=== PATIENT | female | born 1945 | race Caucasian/White ===

== ENCOUNTER 2023-08-15 11:16 | Inpatient (IN) | payer MEDICARE, OTHER, SELFPAY ==
[2023-08-15 11:19] VITALS: BP 120/79; PULSE 87; RESP 18; TEMP 35.8; O2SAT 99; BMI 25.2
[2023-08-15 11:47] LABS: Absolute Neutrophil Count 4.2 X10^3/uL (2.0-7.7); Basophil# 0.03 X10^3/uL; Basophil% 0.4 % (0-1); Eosinophil# 0.49 X10^3/uL; Eosinophils% 6.5 % (0-5); Hematocrit 36.6 % (37-47); Mean Corp Hgb Conc 32.8 g/dL (32-36); Mean Corpuscular Hgb 28.6 pg (27.0-32.0); Mean Corpuscular Volume 87.1 fL (81-99); Mean Platelet Vol. 9.3 fl (6.2-12.0); Monocyte# 0.59 X10^3/uL; Monocyte% 7.8 % (0-10); NRBC Flagged by Analyzer 0 % (0-5); Neutrophil # 4.24 X10^3/uL (2.7-7.7); Neutrophil % 55.9 % (47-70); Platelet Count 324 K/mm3 (150-450); RBC Distribution Width CV 14.1 % (11.6-14.6); RBC Distribution Width SD 44.8 fl (35.1-43.9); White Blood Count 7.6 K/mm3 (4.4-11.0)
[2023-08-15 13:04] LABS: Amphetamine Urine VISTA NEGATIVE (<1000 ng/mL); Barbiturate Urine VISTA NEGATIVE (< 200 ng/mL); Benzodiazepine Urine VISTA POSITIVE (< 200 ng/mL); Cocaine Urine VISTA NEGATIVE (< 300 ng/mL); Ecstacy Urine VISTA NEGATIVE (< 500 ng/mL); Methadone Urine VISTA NEGATIVE (< 300 ng/mL); PCP Urine VISTA NEGATIVE (< 25 ng/mL); THC Urine VISTA NEGATIVE (< 50 ng/mL); Vista UDS pH Range 4
[2023-08-15 13:20] LABS: Anion Gap 9 (5-15); BUN 21 mg/dL (7-18); BUN/Creat Ratio 13.9 RATIO (10-20); Calcium,Total 9.4 mg/dL (8.5-10.1); Chloride 112 mmol/L (98-107); Creatinine, Serum 1.51 mg/dL (0.55-1.02); EST Glomerular Filtration Rate 35 mL/min (>60); Est Glom Filt Rate - Afr Amer 43 mL/min (>60); Estimated Creatinine Clearance 28.35 ml/min; Glucose 106 mg/dL (74-106); Potassium 3.8 mmol/L (3.5-5.1); Sodium Level 142 mmol/L (136-145)
--- NOTE | 2023-08-15 13:42 | EDS_ITS ---
HPI HPI - Psych History of Present Illness Chief Complaint: Substance Abuse Narrative Narrative: 78-year-old female with history of anxiety and depression presenting with anxiety. She states she has been trying to wean down on Valium which has been taking for the last 11 years. She gets 2.5 mg p.o. daily in the morning. She states he is also on olanzapine5 mg p.o. daily and fluoxetine 40 mg p.o. daily in addition to Paxil 20 mg daily. Patient states he is still getting breakthrough anxiety. Patient states that recently had some stressors in the family and her grandson was put in fdc and he is not allowed to see her great- grandson anymore because she is on the wrong side of the family. She states this makes her anxious. Patient reports that her psychiatrist told her she could just discontinue it completely. Patient states that she did not feel she could do this because other people told her it was unsafe. She states she has been to a couple of different physicians and she gets a different story from each. She is not sure what to do. She has not called her psychiatrist back. Patient reports that she tried to wean herself down on the Valium and went from 2.5 to taking half a pill. Over the last month she has been taking a quarter of a pill daily. She states that she is scared to stop because she gets too anxious. [facility] Home Medications ?Medication ?Instructions ?Recorded ?Last Taken ?Type amoxicillin 500 mg capsule 500 mg PO TID 08/15/23 Unknown History mirtazapine 30 mg tablet 30 mg PO QHS 08/15/23 Unknown History olanzapine 5 mg tablet 5 mg PO QHS 08/15/23 Unknown History paroxetine HCl 20 mg tablet (Paxil) 20 mg PO QHS 08/15/23 Unknown History Allergy/AdvReac Type Severity Reaction Status Date / Time No Known Allergies Allergy Verified 08/15/23 11:18 Social History Smoking Status: Former smoker ROS ROS ED Constitutional Constitutional ED: Denies chills, fever(s) or sweats Eyes Eyes: Denies blurry vision or change in vision ENT ENT ED: Denies ear pain or sore throat Cardiovascular Cardiovascular: Denies chest pain, palpitations or racing heartbeat Respiratory/Chest Respiratory/Chest: Denies cough, dyspnea or sputum Gastrointestinal Gastrointestinal: Denies abdominal pain, constipation, diarrhea, nausea or vomiting Genitourinary Genitourinary ED: Denies dysuria, hematuria or urinary frequency Musculoskeletal Musculoskeletal: Denies arthralgias, myalgias or neck pain Integumentary Denies abscess, Abrasions or rash Neurologic Neurologic: Denies headache(s), paresthesias or weakness Psychiatric Psychiatric: Reports anxiety and depression; Denies suicidal ideation or moe icidal thoughts Endocrine Endocrinology: Denies polydipsia or polyuria EXAM Physical Exam Const Vital Signs: 08/15/23 11:19 Temperature 96.5 F L Temperature Source Temporal Pulse Rate 87 Respiratory Rate 18 Blood Pressure 120/79 Blood Pressure Mean 92 Pulse Ox 99 Oxygen Delivery Method Room Air Positive well nourished General Appearance ED: NAD; Negative for pallor HEENT normocephalic and atraumatic Eyes PERRL and EOMs intact bilaterally Resp normal respiratory effort Auscultation: Negative for rales, rhonchi or wheezes Neuro oriented x3 and CN's II-XII intact bilaterally Sensorium / Orientation: alert Psych mental status grossly normal and thought process normal Appearance: grossly normal and appropriate Attitude: other Anxious Activity / Motor Behavior: appropriate eye contact; Negative for psychomotor slowing, fidgetting, hyperactive or disorganized Speech: normal speech Mood & Affect: anxious Thought Process: normal thought process Thought Content: normal thought content, No suicidality and No homicidality Attention / Concentration: attention grossly intact Memory / Cognition: memory grossly intact Insight: insight good Judgement: judgement good Skin General Skin Exam: Negative for jaundice or pallor MDM MDM MDM Narrative Medical decision making narrative: Patient presenting requesting detox from Valium. She has been taking a quarter of a 2.5 mg tablet for about a month now. Screening lab work was obtained and her CBC shows normal white blood cell count at 7.6. Hemoglobin 12.0. Platelets are normal at 324. Electrolytes are normal. Drug screen positive for benzodiazepines which she takes. EtOH negative. Creatinine is 1.5 which is near baseline for her. Will discuss with the hospitalist for possible admission for detox. Discussed with hospitalist who is amenable to keeping the patient for detox. Patient admitted stable condition. Impression: 1. Benzodiazepine detox Lab Data Attestation: I reviewed the patient's lab results. Labs: Laboratory Results - last 24 hr 08/15/23 08/15/23 11:33 12:15 WBC 7.6 RBC 4.20 Hgb 12.0 Hct 36.6 L MCV 87.1 MCH 28.6 MCHC 32.8 RDW Std Deviation 44.8 H RDW Coeff of Jaqueline 14.1 Plt Count 324 MPV 9.3 Immature Gran % (Auto) 0.400 Neut % (Auto) 55.9 Lymph % (Auto) 29.0 [place] % (Auto) 7.8 Eos % (Auto) 6.5 H Baso % (Auto) 0.4 Absolute Neuts (auto) 4.2 Absolute Lymphs (auto) 2.20 Nucleated RBC % 0 Sodium 142 Potassium 3.8 Chloride 112 H Carbon Dioxide 21.0 Anion Gap 9 BUN 21 H Creatinine 1.51 H Estim Creat Clear Calc 28.35 Est GFR (MDRD) Af Amer 43 L Est GFR (MDRD) Non-Af 35 L BUN/Creatinine Ratio 13.9 Glucose 106 Calcium 9.4 Urine Opiates Screen NEGATIVE Urine Methadone Screen NEGATIVE Ur Barbiturates Screen NEGATIVE Ur Phencyclidine Scrn NEGATIVE Ur Amphetamines Screen NEGATIVE MDMA (Ecstasy) Screen NEGATIVE U Benzodiazepines Scrn POSITIVE H Urine Cocaine Screen NEGATIVE U Cannabinoids Screen NEGATIVE Ur Drug Screen Comment Ethyl Alcohol 7.0 Discharge Plan Triage Chief Complaint: Substance Abuse Other Complaint: Anxiety ED Provider: Franko Brock Dx/Rx/DC Orders Prescriptions: No Action paroxetine HCl [Paxil] 20 mg tablet 20 mg PO QHS olanzapine 5 mg tablet 5 mg PO QHS mirtazapine 30 mg tablet 30 mg PO QHS amoxicillin 500 mg capsule 500 mg PO TID Primary Care Provider: Terry Solano Referrals: Terry Solano MD [Primary Care Provider] - Print Language: Finnish
[2023-08-15 14:00] VITALS: BP 157/77; PULSE 69; RESP 16; TEMP 36.7; O2SAT 99
--- NOTE | 2023-08-15 14:17 | HP.PCM.HOS_ITS ---
HPI - General General Date of Admission: 08/15/23 Date of Service: 08/15/23 Chief Complaint: Severe anxiety. Wants to get off Valium HPI Narrative PRINCE BOSS, is a 78 F with history of chronic anxiety and depression on multiple antipsychotic medications, mirtazapine and olanzapine, SSRI paroxetine and Valium 2.5 mg daily came to ED to get off Valium. She follows psychiatrist in [facility] and was told to stop abruptly she said she cannot do it because she has been for a long time. Therefore patient is getting admitted. Patient has history of severe anxiety with panic attack. She also complains of loss of weight about 20 pounds in 2 months. Including seeing, CT chest, abdomen and pelvis was checked done as an outpatient did not show any lymphadenopathy. Patient states she does not have appetite and did not eat much. She has very low self-esteem and indices and does not know what to do and even had difficulty in deciding whether she gets admitted or not but lastly decided to get admitted Patient accompanied with her and last visit to get admitted. Vitals reviewed. Patient said her blood pressure is very low in ED and sometimes does not take carvedilol. But carvedilol is not listed in her home meds. Family history noncontributory to the present illness. [facility] Home Medications ?Medication ?Instructions ?Recorded ?Last Taken ?Type amoxicillin 500 mg capsule 500 mg PO TID 08/15/23 Unknown History calcium carbonate 600 mg-vitamin 1 tab PO DAILY 08/15/23 Unknown History D3 5 mcg (200 unit) tablet (Calcium 600 + D(3)) carvedilol 12.5 mg tablet 12.5 mg PO BID 08/15/23 Unknown History cyanocobalamin (vitamin B-12) 1,000 mcg IM Q21D 08/15/23 Unknown History 1,000 mcg/mL injection solution diazepam 5 mg tablet 5 mg PO TID PRN PRN anxiety 08/15/23 Unknown History ferrous sulfate 325 mg (65 mg 325 mg PO Q3D 08/15/23 08/14/23 History iron) tablet (FeroSul) magnesium 250 mg tablet 250 mg PO DAILY 08/15/23 Unknown History mirtazapine 30 mg tablet 30 mg PO QHS 08/15/23 Unknown History multivitamin (Daily Multi-Vitamin 1 tab PO DAILY 07/10/24 Unknown History tablet) olanzapine 5 mg tablet 5 mg PO QHS 08/15/23 Unknown History paroxetine HCl 20 mg tablet (Paxil) 20 mg PO QHS 08/15/23 Unknown History potassium citrate 99 mg capsule 99 mg PO DAILY 08/15/23 Unknown History Allergy/AdvReac Type Severity Reaction Status Date / Time No Known Allergies Allergy Verified 08/15/23 11:18 Social History Smoking Status: Former smoker ROS ROS Narrative Constitutional: Reports fatigue and weakness. No fever. Complain of loss of weight HEENT: Reports systems reviewed and no addt'l complaints, except as documented Respiratory/Chest: No acute shortness of breath or respiratory distress or wheezing. CVS: No chest pain or tightness. Gastrointestinal: Denies coffee ground emesis, hematemesis or vomiting Genitourinary: Denies burning urination or new urinary tract symptoms Musculoskeletal: Denies acute joint pain or limited range of motion. No acute injury Neurologic: Denies seizure-like symptoms. Psychiatry: Severe anxiety and depression. Low self-esteem skin: No ulcer. No rash Endocrinology: Reports systems reviewed and no addt'l complaints, except as documented Hematologic/Lymphatic: Reports systems reviewed and no addt'l complaints, except as documented Rest 14 ROS are negative except as mentioned in HPI Vital Signs Vital Signs Vital Signs: 08/15/23 11:19 Temperature 96.5 F L Temperature Source Temporal Pulse Rate 87 Respiratory Rate 18 Blood Pressure 120/79 Blood Pressure Mean 92 Pulse Ox 99 Oxygen Delivery Method Room Air Weight Weight: 146 lb 11.2 oz Body Mass Index (BMI) 25.2 Physical Exam Narrative General: Alert, Oriented x3, Cooperative HEENT: Atraumatic, PERRLA, EOMI, Normocephalic Oral: No Gingival or Mucosal Lesions/ Ulcerations Neck: Supple, No JVD, Negative Carotid Bruits Chest wall/Lungs: Air entry diminished in bilateral lung bases. No crepitation/rhonchi Cardiovascular: Regular rate, Regular Rhythm, Normal S1, Normal S2, No M/G/R Abdomen: Bowel Sounds Present, Soft, Non Tender, Non-Distended : No dysuria. No renal angle tenderness. No suprapubic tenderness. Extremities: No edema, Capillary Refill Less than 3 Seconds Skin: No rashes, No breakdown Musculoskeletal: No Tenderness to Palpation of Joints or Extremities Neurological: Cranial nerves II-XII grossly intact, DTR 2+/4. No acute focal neurological deficit. Psych/Mental Status: Flat affect, anxious, indecisive. Has tremors and shakings of anxiety Results Lab / Micro Data 08/15/23 11:33 08/15/23 11:33 Labs: Laboratory Results - last 24 hr 08/15/23 11:33: WBC 7.6, RBC 4.20, Hgb 12.0, Hct 36.6 L, MCV 87.1, MCH 28.6, MCHC 32.8, RDW Std Deviation 44.8 H, RDW Coeff of Jaqueline 14.1, Plt Count 324, MPV 9.3, Immature Gran % (Auto) 0.400, Neut % (Auto) 55.9, Lymph % (Auto) 29.0, [place] % (Auto) 7.8, Eos % (Auto) 6.5 H, Baso % (Auto) 0.4, Absolute Neuts (auto) 4.2, Absolute Lymphs (auto) 2.20, Nucleated RBC % 0, Sodium 142, Potassium 3.8, C hloride 112 H, Carbon Dioxide 21.0, Anion Gap 9, BUN 21 H, Creatinine 1.51 H, Estim Creat Clear Calc 28.35, Est GFR (MDRD) Af Amer 43 L, Est GFR (MDRD) Non-Af 35 L, BUN/Creatinine Ratio 13.9, Glucose 106, Calcium 9.4, Ethyl Alcohol 7.0 08/15/23 12:15: Urine Opiates Screen NEGATIVE, Urine Methadone Screen NEGATIVE, Ur Barbiturates Screen NEGATIVE, Ur Phencyclidine Scrn NEGATIVE, Ur Amphetamines Screen NEGATIVE, MDMA (Ecstasy) Screen NEGATIVE, U Benzodiazepines Scrn POSITIVE H, Urine Cocaine Screen NEGATIVE, U Cannabinoids Screen NEGATIVE, Ur Drug Screen Comment Assessment & Plan Assessment/Plan (1) Benzodiazepine dependence, continuous: PLAN: Plan This is a 69 Ne[employer] being admitted for 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 Acute benzodiazepine withdrawal syndrome with chronic benzodiazepine use and dependence and tolerance: Patient is being admitted to [facility] floor. Patient on Ativan based order set along with other adjunctive medications gabapentin, Bentyl, Vistaril, clonidine, Klonopin as needed for benzodiazepine withdrawal symptom control. Patient is on thiamine and folate acid. Discontinue diazepam/Valium monitor for benzodiazepine withdrawal symptoms and is scoring. online merchandising manager 180 consulted. U tox positive for benzodiazepine. 2. Severe anxiety and depression: Patient on olanzapine 5 mg nightly, mirtazapine 30 mg and paroxetine 20 mg nightly besides Valium 2.5 mg daily. Mirtazapine decreased to 50 mg otherwise other medications continued. Patient follows psychiatrist advised to continue. 3. Loss of weight: Patient had outpatient CT chest abdomen, reviewed in clinic seen does not show lymphadenopathy. Advised to continue follow with PCP or oncology office. Patient had CT abdomen pelvis without IV contrast on August 06, 2023 and reported no lymphadenopathy in the abdomen or pelvis by size criteria. Patient had CT chest without contrast on August 06, 2023 and reported no thoracic lymphadenopathy. Advised to follow with PCP. 4. Chronic hypertension: Patient not taking any medication. Blood pressure is normal 5. Possible worsening of CKD stage III: Creatinine is 1.51. Estimated creatinine clearance 28 mL/min. Previous creatinine was 1.29 on July 31, 2023. BUN 29. BUNs/creatinine ratio 22 and does not meet criteria for KENDELL IV fluid ordered DVT prophylaxis, moderate to high risk: Lovenox 30 milligram subcu daily. Discontinue if platelet count drops less than 50,000 or hemoglobin less than 8 g% Living will/advanced directive/end of life care: Patient does have living will or advanced directive. Her is power of deputy commonwealth's attorney for health after discussion of benefits/risks procedures involved with full code, DNR CC arrest and DNR CC, the patient opted for DNR CC arrest with no intubation Patient doesn't want artificial life support including intubation, tube feed, ventilator and/chest compression, central venous catheter, vasopressor and DC shock if needed Total time spent in [id number] encounter in discussion of advanced directive 17 minutes. Laboratory Results 08/15/23 11:33: WBC 7.6, RBC 4.20, Hgb 12.0, Hct 36.6 L, MCV 87.1, MCH 28.6, MCHC 32.8, RDW Std Deviation 44.8 H, RDW Coeff of Jaqueline 14.1, Plt Count 324, MPV 9.3, Immature Gran % (Auto) 0.400, Neut % (Auto) 55.9, Lymph % (Auto) 29.0, [place] % (Auto) 7.8, Eos % (Auto) 6.5 H, Baso % (Auto) 0.4, Absolute Neuts (auto) 4.2, Absolute Lymphs (auto) 2.20, Nucleated RBC % 0, Sodium 142, Potassium 3.8, Chloride 112 H, Carbon Dioxide 21.0, Anion Gap 9, BUN 21 H, Creatinine 1.51 H, Estim Creat Clear Calc 28.35, Est GFR (MDRD) Af Amer 43 L, Est GFR (MDRD) Non-Af 35 L, BUN/Creatinine Ratio 13.9, Glucose 106, Calcium 9.4, Total Bilirubin 0.50, Direct Bilirubin 0.16, AST 28, ALT 40, Alkaline Phosphatase 44 L, Total Protein 7.1, Albumin 3.7, Globulin 3.4, Ethyl Alcohol 7.0 08/15/23 12:15: Urine Opiates Screen NEGATIVE, Urine Methadone Screen NEGATIVE, Ur Barbiturates Screen NEGATIVE, Ur Phencyclidine Scrn NEGATIVE, Ur Amphetamines Screen NEGATIVE, MDMA (Ecstasy) Screen NEGATIVE, U Benzodiazepines Scrn POSITIVE H, Urine Cocaine Screen NEGATIVE, U Cannabinoids Screen NEGATIVE, Ur Drug Screen Comment Charges/Coding Visit Charges Inpatient E&M: 85366 Init Hosp L3 Procedures Hospitalists Procedures: 42786 Advncd Care Plan 30 Min
[2023-08-15 14:30] VITALS: BP 157/77; PULSE 69; RESP 16; TEMP 36.7; O2SAT 99
[2023-08-15 14:38] LABS: AST(SGOT) 28 U/L (15-37); Alanine Aminotransfer ALT/SGPT 40 U/L (13-56); Albumin, Serum 3.7 g/dL (3.2-5.0); Alkaline Phosphatase 44 U/L (45-117); Bilirubin, Direct 0.16 mg/dL (0.00-0.30); Globulin 3.4 g/dL (2.2-4.2); Protein, Total 7.1 g/dL (6.4-8.2)
[2023-08-15 15:07] VITALS: BMI 25.0
[2023-08-15 15:23] VITALS: BP 154/77; PULSE 69; RESP 18; TEMP 36.8; O2SAT 97
[2023-08-15 15:44] LABS: International Normalized Ratio 1.1; Prothrombin Time (Protime)PT. 14.3 SECONDS (11.7-14.9)
[2023-08-15] MEDS: Acetaminophen 500 MG Tablet PO (15:51)
[2023-08-15] MEDS: LORazepam 1 MG Tablet PO ×2 (15:51→21:16)
[2023-08-15] MEDS: Enoxaparin 30 MG/0.3 ML Syringe SC (15:52)
[2023-08-15] MEDS: 0.9% Saline Lock 10 ML Syringe IV (15:53)
[2023-08-15] MEDS: Lactated Ringers 1,000 ML 125 ML IV (15:53)
[2023-08-15 21:13] VITALS: BP 145/82; PULSE 74; RESP 18; TEMP 36.6; O2SAT 94
[2023-08-15] MEDS: Paroxetine 20 MG Tablet PO (21:18)
[2023-08-15] MEDS: Mirtazapine 15 MG Tablet PO (21:18)
[2023-08-16 00:53] VITALS: BP 131/72; PULSE 77; RESP 16; TEMP 36.7; O2SAT 96
[2023-08-16] MEDS: LORazepam 1 MG Tablet PO ×6 (00:57→21:30)
[2023-08-16] MEDS: 0.9% Saline Lock 10 ML Syringe IV ×2 (00:57→21:42)
[2023-08-16] MEDS: Acetaminophen 500 MG Tablet PO ×2 (00:59→21:41)
[2023-08-16 04:32] VITALS: BP 102/65; PULSE 67; RESP 16; TEMP 37.1; O2SAT 95
[2023-08-16 08:41] LABS: Hematocrit 33.5 % (37-47); Mean Corp Hgb Conc 32.8 g/dL (32-36); Mean Corpuscular Hgb 29.2 pg (27.0-32.0); Mean Corpuscular Volume 88.9 fL (81-99); Mean Platelet Vol. 9.2 fl (6.2-12.0); Platelet Count 271 K/mm3 (150-450); RBC Distribution Width CV 14.1 % (11.6-14.6); RBC Distribution Width SD 45.8 fl (35.1-43.9); Red Blood Count 3.77 M/mm3 (4.2-5.4); White Blood Count 6.9 K/mm3 (4.4-11.0)
[2023-08-16 09:00] VITALS: O2SAT 98
[2023-08-16 09:04] LABS: Anion Gap 5 (5-15); BUN 22 mg/dL (7-18); BUN/Creat Ratio 16.2 RATIO (10-20); Calcium,Total 8.6 mg/dL (8.5-10.1); Chloride 114 mmol/L (98-107); Creatinine, Serum 1.36 mg/dL (0.55-1.02); EST Glomerular Filtration Rate 40 mL/min (>60); Est Glom Filt Rate - Afr Amer 48 mL/min (>60); Estimated Creatinine Clearance 31.39 ml/min; Glucose 123 mg/dL (74-106); Potassium 3.6 mmol/L (3.5-5.1); Sodium Level 141 mmol/L (136-145)
[2023-08-16 10:30] VITALS: BP 110/78; PULSE 70; RESP 14; TEMP 36.6; O2SAT 98
--- NOTE | 2023-08-16 10:52 | PCM.PN.HOSP ---
Reason for Visit Reason for Visit: Diagnoses Sedative, hypnotic or anxiolytic dependence, uncomplicated (08/15/23) Subjective Subjective Saw patient at bedside this morning. Patient was laying comfortably in bed, conversing normally, no acute distress. Stated she got a good night sleep last night and denies any withdrawal symptoms this morning. No other new concerns today. Objective Data Objective Data Vital Signs: Vital Signs Temp Pulse Resp BP Pulse Ox O2 Del Method 98.7 F 67 16 102/65 95 Room Air 08/16/23 04:32 08/16/23 04:32 08/16/23 04:32 08/16/23 04:32 08/16/23 04:32 08/16/23 04:32 Oxygen Delivery Method Room Air Weight: 66.134 kg Body Mass Index (BMI) 25.0 Intake & Output: Intake and Output for Last 24 Hours 08/14/23 08/15/23 08/16/23 23:59 23:59 23:59 Intake Total 1000 / 1000 Balance 1000 / 1000 Lab / Micro Data 08/16/23 08:31 08/16/23 08:31 Labs: Laboratory Results - last 24 hr 08/15/23 11:33: WBC 7.6, RBC 4.20, Hgb 12.0, Hct 36.6 L, MCV 87.1, MCH 28.6, MCHC 32.8, RDW Std Deviation 44.8 H, RDW Coeff of Jaqueline 14.1, Plt Count 324, MPV 9.3, Immature Gran % (Auto) 0.400, Neut % (Auto) 55.9, Lymph % (Auto) 29.0, [place] % (Auto) 7.8, Eos % (Auto) 6.5 H, Baso % (Auto) 0.4, Absolute Neuts (auto) 4.2, Absolute Lymphs (auto) 2.20, Nucleated RBC % 0, Sodium 142, Potassium 3.8, Chloride 112 H, Carbon Dioxide 21.0, Anion Gap 9, BUN 21 H, Creatinine 1.51 H, Estim Creat Clear Calc 28.35, Est GFR (MDRD) Af Amer 43 L, Est GFR (MDRD) Non-Af 35 L, BUN/Creatinine Ratio 13.9, Glucose 106, Calcium 9.4, Total Bilirubin 0.50, Direct Bilirubin 0.16, AST 28, ALT 40, Alkaline Phosphatase 44 L, Total Protein 7.1, Albumin 3.7, Globulin 3.4, Ethyl Alcohol 7.0 08/15/23 12:15: Urine Opiates Screen NEGATIVE, Urine Methadone Screen NEGATIVE, Ur Barbiturates Screen NEGATIVE, Ur Phencyclidine Scrn NEGATIVE, Ur Amphetamines Screen NEGATIVE, MDMA (Ecstasy) Screen NEGATIVE, U Benzodiazepines Scrn POSITIVE H, Urine Cocaine Screen NEGATIVE, U Cannabinoids Screen NEGATIVE, Ur Drug Screen Comment 08/15/23 14:55: PT 14.3, INR 1.1 08/16/23 08:31: WBC 6.9, RBC 3.77 L, Hgb 11.0 L, Hct 33.5 L, MCV 88.9, MCH 29.2, MCHC 32.8, RDW Std Deviation 45.8 H, RDW Coeff of Jaqueline 14.1, Plt Count 271, MPV 9.2, Sodium 141, Potassium 3.6, Chloride 114 H, Carbon Dioxide 22.0, Anion Gap 5, BUN 22 H, Creatinine 1.36 H, Estim Creat Clear Calc 31.39, Est GFR (MDRD) Af Amer 48 L, Est GFR (MDRD) Non-Af 40 L, BUN/Creatinine Ratio 16.2, Glucose 123 H, Calcium 8.6 Physical Exam Const alert, oriented x3, no apparent distress and average body habitus Constitutional Narrative: Elderly female, resting comfortably in bed, conversing normally, in no acute distress. General Appearance: cooperative and comfortable HEENT normocephalic, head/scalp atraumatic, hearing grossly normal bilaterally, nasal mucous membranes and turbinates normal and moist oral mucous membranes Eyes PERRL, EOMs intact bilaterally and conjunctivae normal Neck full ROM Chest inspection of chest normal Resp normal respiratory effort, normal air movement, no use of accessory muscles and clear to auscultation bilaterally Cardio regular rate, regular rhythm, no murmurs and peripheral pulses 2+ throughout GI normal to inspection, nondistended, normoactive bowel sounds, soft to palpation, non-tender and non-distended Back/Spine normal ROM Extremity normal to inspection, full ROM and no pedal edema Skin no rashes or lesions noted Neuro moves all extremities and no focal motor deficits Speech: speech normal Psych mental status grossly normal Assessment & Plan Assessment/Plan (1) Benzodiazepine dependence, continuous: PLAN: Plan Patient is a 78-year-old female who presented [facility] ED on 08/15/2023 requesting assistance with tapering off of her home benzodiazepine. 1. Chronic benzodiazepine use with concern for withdrawal ? On home diazepam 5 mg daily as needed for years and was told by PCP that she needed to probably taper off, and she had concerned about significant withdrawal symptoms if doing this at home. Treating with Ativan taper with other as needed medications per benzodiazepine withdrawal order set. Patient tolerating taper well, no significant withdrawal symptoms. Continue to monitor. Likely okay for discharge over the next 1 to 2 days. 2. History of severe anxiety and depression ? Current home medications of paroxetine 20 mg at night, olanzapine 5 mg at night and mirtazapine 30 mg at night. Notably with the olanzapine and mirtazapine, has heavy sedating regimen at night. Mirtazapine dose decreased to 15 mg at night on admission and patient tolerating well. Will plan to continue this dosing on discharge. 3. CKD stage III ? Creatinine 1.51 on admit, baseline creatinine 1.3-1.5. Stable at baseline. 4. Mild chronic iron deficiency anemia ? Hemoglobin 12.0 on admit, decreased to 11.0 on hospital day 2 presumed secondary to IV fluid resuscitation on admit. Baseline hemoglobin 11-12. Stable. Continue home iron supplement. 5. Recent history of unintentional weight loss ? Patient apparently had concern for unintentional weight loss over the past few months. Had CT chest abdomen pelvis on 08/05 that showed no concerning findings. Continue outpatient PCP follow-up as needed. DVT prophylaxis: Lovenox CODE STATUS: Full code, verified Expected disposition: Home, 1 to 2 days Total clinical time spent by myself addressing the patient's medical issues, reviewing all the data, and collaborating with patient's care team: 35 minutes. Charges/Coding Visit Charges Inpatient E&M: 74218 Subs Hosp L2
--- NOTE | 2023-08-16 11:28 | NURSING ---
PATIENT CALLED INTO [facility] ASKING THAT WE CHECK PATIENTS TSH AND ALSO LEFT RIBS D/T PATIENT FALLING AT HOME PRIOR TO ARRIVAL TO ED AND PATIENT NOT HAVING IMAGING DONE IN ED. MESSAGE SENT TO MD GLADIS AWARE AND PLACING ORDERS. ATTEMPTED TO CALL TO LET HIM KNOW WE ARE GOING TO DO TESTING. NO ANSWER.
[2023-08-16] MEDS: Enoxaparin 30 MG/0.3 ML Syringe SC (11:42)
[2023-08-16] MEDS: Thiamine Hydrochloride 100 MG Tablet PO (11:42)
[2023-08-16] MEDS: Folic Acid 1 MG Tablet PO (11:42)
[2023-08-16 12:14] LABS: Bedside Glucose 111 mg/dL (74-106)
--- NOTE | 2023-08-16 13:26 | CHAPLAIN ---
Type of Pastoral Visit _x__ Initial Visit ___ Follow-up Visit ___ On-call Visit ___ General Patient Visit ___ Spiritual Assessment ___ Family Conference ___ Bereavement ___ Rapid Response ___ Code Blue ___ Other (describe below) Pastoral Care Referral From _x__ Patient ___ Family ___ Nurse ___ Physician ___ Scrap Drop Operator ___ Copper Plate Printer ___ Other (describe below) Sacrament/Intervention _x__ Active listening ___ Anointing ___ Confucianist ___ Bereavement ___ Communion ___ Jaclyn exploration ___ _x__ Life review _x__ Prayer ___ Reconciliation ___ Sacrament of Sick _x__ Supportive presence ___ Wedding ___ Other (describe below) Pastoral Comments patient is resting comfortably in bed but later acknowledges that she has rib pain and thus was not moving much in the bed; pt is willing to talk and soon opens up about her feelings which include grief and trying to avoid [place] because it brings up my sorrow and bad memories; pt lives 6 months here and 6 months in [place]; pt expresses sadness and making a poor decision to sell the home in [place] and how wishing to go back there and live; conversation included a discussion on what things help patient to feel better, handle situations, and cope with life; pt is invited to seek counseling as a possibility and pt declares that there aren't enough counselors in [place] and I can't get to one for weeks; pt is informed that [facility] has counselors and a psychiatrist that could be helpful; in further discussion the patient just states that her best opportunity to feel better would be to go back to [place]; pt is asked about any jaclyn resources; 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
[2023-08-16 13:52] LABS: T4 Free Direct 0.72 ng/dL (0.76-1.46); Thyroid Stim Hormone (TSH) 3.08 uIU/mL (0.358-3.74)
--- NOTE | 2023-08-16 13:55 | RAD_ITS ---
EXAM: XR BILATERAL RIBS AND AP CHEST, 3 OR MORE VIEWS CLINICAL INDICATION: fall prior to admit with rib pain TECHNIQUE: Frontal and oblique views of the bilateral ribs and frontal view of the chest. COMPARISON: No relevant prior studies available. FINDINGS: LUNGS AND PLEURAL SPACES: Unremarkable. No consolidation or edema. No pneumothorax. No effusion. HEART: Unremarkable. Cardiac silhouette not enlarged. MEDIASTINUM: Central airways and mediastinal contour are unremarkable. BONES/JOINTS: Unremarkable. No evidence of displaced rib fractures. RAD/Ribs Yemi Min 4V w/PA Chest IMPRESSION: Negative chest and bilateral ribs series. Electronically Signed: Kumar Glez MD at 20:29 EDT ,
--- NOTE | 2023-08-16 14:55 | CASEMGMT ---
Social Work- SW met with pt to discuss advance directives.? Pt confirms she has completed a living will and health care POA naming Angel, .? Pt notified that documents are not on file at [facility] and SW requested they be brought in for scanning into the EMR.? CASSANDRA Flores
--- NOTE | 2023-08-16 14:56 | CASEMGMT ---
Social Work- SW met with pt to address any needs for resources or supports that she may have, as well as provide active. empathetic listening. Pt reports that she has been working with her psychiatrist for several years and he has been able to help pt prior, however, recently, she feels that he has been excessively prescribing medication. Pt reports that she went to [place] over the winter/spring and working with a psych nurse who was in process of helping her, but then pt came back to [place]. Pt reports that she has no formal dx for mental health in her life that she is aware of. Pt reports that she has received counseling in the past and found it to be mildly beneficial. Pt reports that spouse is supportive, but does not understand mental health. Pt reports that she would be open to returning to counseling, but reports that it is very hard to find counselors with availability. SW provided a list of psychiatrists and therapists that was compiled through [facility]. SW provided a list of IOP programs in [facility]. SW provided a list of behavioral health providers for [facility], as well as information on [facility] IOP. Pt reports that there are no other supports or resources needed at this time. Pt was uncertain if she spoke with Migel this morning. Pt did not appear to have any printed resources in her room from 180. SW to follow up with Migel. Pt reports that she was physically feeling very poor, which led to increasing anxiety and pt is looking forward to returning to a baseline of feeling well physically. SW to remain available to follow for any additional needs. CASSANDRA Flores
--- NOTE | 2023-08-16 15:04 | NURSING ---
This RN aware of Deneen Marie Lpn's shift assessment this morning and focused assessment this afternoon along with vital signs and CIWA scores.
[2023-08-16] MEDS: Ensure Plus High Protein 120 ML LIQUID PO ×3 (15:09→21:42)
[2023-08-16 17:34] VITALS: BP 108/78; PULSE 68; RESP 14; TEMP 36.6; O2SAT 97
[2023-08-16 21:27] VITALS: BP 101/81; PULSE 94; RESP 18; TEMP 36.5; O2SAT 93
[2023-08-16] MEDS: Mirtazapine 15 MG Tablet PO (21:31)
[2023-08-16] MEDS: Paroxetine 20 MG Tablet PO (21:31)
[2023-08-17 00:08] VITALS: BP 128/71; PULSE 85; RESP 16; TEMP 36.6; O2SAT 96
[2023-08-17] MEDS: LORazepam 1 MG Tablet PO ×7 (00:10→23:04)
[2023-08-17 04:01] VITALS: BP 114/73; PULSE 67; RESP 16; TEMP 36.4; O2SAT 93
[2023-08-17 07:53] VITALS: BP 121/72; PULSE 74; RESP 16; TEMP 36.9; O2SAT 99
[2023-08-17] MEDS: Folic Acid 1 MG Tablet PO (07:56)
[2023-08-17] MEDS: Ensure Plus High Protein 120 ML LIQUID PO ×3 (07:57→16:35)
[2023-08-17] MEDS: Enoxaparin 30 MG/0.3 ML Syringe SC (07:57)
[2023-08-17] MEDS: Thiamine Hydrochloride 100 MG Tablet PO (07:57)
--- NOTE | 2023-08-17 09:55 | CASEMGMT ---
Social Work- SW met with pt to follow up with conversation about mental health and [facility] resources provided yesterday. Pt reports that she does not wish to have any referrals completed at this time. Pt reports that she is doing well today and has no needs at this time. CASSANDRA Flores
--- NOTE | 2023-08-17 12:29 | PCM.PN.HOSP ---
Reason for Visit Reason for Visit: Diagnoses Sedative, hypnotic or anxiolytic dependence, uncomplicated (08/15/23) Subjective Subjective Saw patient at bedside this morning. Patient appeared similar today to yesterday, laying comfortably in bed, in no acute distress. Patient does state that she feels slightly more anxious today than yesterday. She otherwise has been tolerating the benzodiazepine taper well. She did sleep well overnight. No new concerns today. Objective Data Objective Data Vital Signs: Vital Signs Temp Pulse Resp BP Pulse Ox O2 Del Method 98.4 F 74 16 121/72 H 99 Room Air 08/17/23 07:53 08/17/23 07:53 08/17/23 07:53 08/17/23 07:53 08/17/23 07:53 08/17/23 07:53 Oxygen Delivery Method Room Air Weight: 66.134 kg Body Mass Index (BMI) 25.0 Intake & Output: Intake and Output for Last 24 Hours 08/15/23 08/16/23 08/17/23 23:59 23:59 23:59 Intake Total 1600 / 2100 500 / 500 Balance 1600 / 2100 500 / 500 Medical Nutrition Assessment Dietitian: Malnutrition Criteria Met Start: 08/16/23 11:38 Freq: Status: Active Protocol: Document 08/16/23 11:53 (Rec: 08/16/23 11:53 [id number]) Nutrition Malnutrition Evidence of Malnutrition Exists Yes Malnutrition (severe): Chronic Evidenced By Suboptimal Energy Intake ( Severe),Weight Loss (Severe) Clinical Problem Chronic Disease or Condition Related Malnutrition Etiology severe related to anxiety and decreased appetite Signs/Symptoms as evidenced by 21.2lbs (12.6% ) weight loss in 2 months and PO intakes <75% of estimated nutrition need for ~2 months Status Active Problem Recommendation Dietitian Recommendations/Changes Continue Regular diet with snacks TID to optimize oral intakes RD will order 120mL ensure plus high protein 4x with medpass to provide supplemental energy and promote weight maintenance Lab / Micro Data 08/16/23 08:31 08/16/23 08:31 Labs: Laboratory Results - last 24 hr 08/16/23 08:31: TSH 3.08, Free T4 0.72 L Radiography Diagnostic Testing: Radiology Impression Ribs w/Chest X-Ray 08/16/23 13:55 IMPRESSION: Negative chest and bilateral ribs series. Electronically Signed: Kumar Glez MD at 20:29 EDT , Physical Exam Const alert, oriented x3, no apparent distress and average body habitus Constitutional Narrative: Elderly female, resting comfortably in bed, conversing normally, in no acute distress. General Appearance: cooperative and comfortable HEENT normocephalic, head/scalp atraumatic, hearing grossly normal bilaterally, nasal mucous membranes and turbinates normal and moist oral mucous membranes Eyes PERRL, EOMs intact bilaterally and conjunctivae normal Neck full ROM Chest inspection of chest normal Resp normal respiratory effort, normal air movement, no use of accessory muscles and clear to auscultation bilaterally Cardio regular rate, regular rhythm, no murmurs and peripheral pulses 2+ throughout GI normal to inspection, nondistended, normoactive bowel sounds, soft to palpation, non-tender and non-distended Back/Spine normal ROM Extremity normal to inspection, full ROM and no pedal edema Skin no rashes or lesions noted Neuro moves all extremities and no focal motor deficits Speech: speech normal Psych mental status grossly normal Assessment & Plan Assessment/Plan (1) Benzodiazepine dependence, continuous: PLAN: Plan Patient is a 78-year-old female who presented [facility] ED on 08/15/2023 requesting assistance with tapering off of her home benzodiazepine. 1. Chronic benzodiazepine use with concern for withdrawal ? On home diazepam 5 mg daily as needed for years and was told by PCP that she needed to probably taper off, and she had concerned about significant withdrawal symptoms if doing this at home. Treating with Ativan taper with other as needed medications per benzodiazepine withdrawal order set. Patient tolerating taper well, no significant withdrawal symptoms. Continue to monitor. Likely okay for discharge home in the next 1 to 2 days. 2. History of severe anxiety and depression ? Current home medications of paroxetine 20 mg at night, olanzapine 5 mg at night and mirtazapine 30 mg at night. Notably with the olanzapine and mirtazapine, has heavy sedating regimen at night. Mirtazapine dose decreased to 15 mg at night on admission and patient tolerating well. Will plan to continue this dosing on discharge. 3. CKD stage III ? Creatinine 1.51 on admit, baseline creatinine 1.3-1.5. Stable at baseline. 4. Mild chronic iron deficiency anemia ? Hemoglobin 12.0 on admit, decreased to 11.0 on hospital day 2 presumed secondary to IV fluid resuscitation on admit. Baseline hemoglobin 11-12. Stable. Continue home iron supplement. 5. Recent history of unintentional weight loss ? Patient apparently had concern for unintentional weight loss over the past few months. Had CT chest abdomen pelvis on 08/05 that showed no concerning findings. Continue outpatient PCP follow-up as needed. DVT prophylaxis: Lovenox CODE STATUS: Full code, verified Expected disposition: Home, 1 to 2 days Total clinical time spent by myself addressing the patient's medical issues, reviewing all the data, and collaborating with patient's care team: 25 minutes. Charges/Coding Visit Charges Inpatient E&M: 56202 [facility] L1
[2023-08-17] MEDS: Acetaminophen 500 MG Tablet PO (12:33)
--- NOTE | 2023-08-17 13:10 | ADDICTION ---
Met with pt to complete RAMP assesment and discuss D/C planning. Pt has been dependent on her benzodiazepine prescription for about 10 years, since the passing of her daughter. She reports having minimal counseling and no grief therapy. Clinician will provide resources for MH and grief clinicians in the area.
[2023-08-17 16:42] VITALS: BP 124/73; PULSE 82; RESP 18; TEMP 36.9; O2SAT 97
[2023-08-17 19:41] VITALS: BP 131/79; PULSE 79; RESP 16; TEMP 36.6; O2SAT 98
[2023-08-17] MEDS: Mirtazapine 15 MG Tablet PO (23:05)
[2023-08-17] MEDS: Paroxetine 20 MG Tablet PO (23:05)
[2023-08-18 00:09] VITALS: BP 126/78; PULSE 80; RESP 14; TEMP 36.6; O2SAT 98
[2023-08-18 06:27] VITALS: BP 117/72; PULSE 74; RESP 16; TEMP 36.2; O2SAT 95
[2023-08-18] MEDS: LORazepam 1 MG Tablet PO (06:33)
[2023-08-18 07:58] VITALS: BP 140/93; PULSE 74; RESP 18; TEMP 36.9; O2SAT 95
[2023-08-18] MEDS: Ensure Plus High Protein 120 ML LIQUID PO (08:10)
[2023-08-18] MEDS: Thiamine Hydrochloride 100 MG Tablet PO (08:11)
[2023-08-18] MEDS: Folic Acid 1 MG Tablet PO (08:11)
[2023-08-18] MEDS: Enoxaparin 40 MG/0.4 ML Syringe SC (08:12)
--- NOTE | 2023-08-18 11:54 | PCM.PN.HOSP ---
Reason for Visit Reason for Visit: Diagnoses Sedative, hypnotic or anxiolytic dependence, uncomplicated (08/15/23) Objective Data Objective Data Vital Signs: Vital Signs Temp Pulse Resp BP Pulse Ox O2 Del Method 98.4 F 74 18 140/93 H 95 Room Air 08/18/23 07:58 08/18/23 07:58 08/18/23 07:58 08/18/23 07:58 08/18/23 07:58 08/18/23 07:58 Oxygen Delivery Method Room Air Weight: 66.134 kg Body Mass Index (BMI) 25.0 Intake & Output: Intake and Output for Last 24 Hours 08/16/23 08/17/23 08/18/23 23:59 23:59 23:59 Intake Total 1600 / 2100 1260 / 1260 Balance 1600 / 2099 1260 / 1260 Medical Nutrition Assessment Dietitian: Malnutrition Criteria Met Start: 08/16/23 11:38 Freq: Status: Active Protocol: Document 08/16/23 11:53 HUGH (Rec: 08/16/23 11:53 [id number]) Nutrition Malnutrition Evidence of Malnutrition Exists Yes Malnutrition (severe): Chronic Evidenced By Suboptimal Energy Intake ( Severe),Weight Loss (Severe) Clinical Problem Chronic Disease or Condition Related Malnutrition Etiology severe related to anxiety and decreased appetite Signs/Symptoms as evidenced by 21.2lbs (12.6% ) weight loss in 2 months and PO intakes <75% of estimated nutrition need for ~2 months Status Active Problem Recommendation Dietitian Recommendations/Changes Continue Regular diet with snacks TID to optimize oral intakes RD will order 120mL ensure plus high protein 4x with medpass to provide supplemental energy and promote weight maintenance Lab / Micro Data 08/16/23 08:31 08/16/23 08:31
--- NOTE | 2023-08-18 13:27 | PCM.DC ---
Discharge Instructions Diet Discharge Diet: No restrictions Activity Discharge Activity: No Restrictions Follow Up Care Test Results: Test results from this visit will be discussed in further detail at your follow-up appointment, if applicable. Discharge Plan Admission Admit Date/Time: 08/15/23 13:55 Primary Reason for Your Visit: Chronic benzodiazepine use with concern for withdrawal Attending Provider: Roger Mcnamara Primary Care Provider: Terry Solano Consulting Providers: Otis Kwong Instructions Additional Instructions / Restrictions: Please take mirtazapine and decreased dose of 50 mg at night as noted below. Stop taking the home olanzapine. Continue your home Paxil as normal. Follow-up with your primary care doctor for further medication titration as needed. Discharge Orders/Prescriptions Prescriptions: New mirtazapine 15 mg Tablet 15 mg PO QHS 30 Days Qty: 30 2RF Continued paroxetine HCl [Paxil] 20 mg tablet 20 mg PO QHS carvedilol 12.5 mg tablet 12.5 mg PO BID multivitamin [Daily Multi-Vitamin] Tablet 1 tab PO DAILY magnesium 250 mg tablet 250 mg PO DAILY cyanocobalamin (vitamin B-12) 1,000 mcg/mL solution 1,000 mcg IM Q21D Patient Comments: PT UNAWARE OF WHEN THIS IS DUE calcium carbonate-vitamin D3 [Calcium 600 + D(3)] 600 mg-5 mcg (200 unit) tablet 1 tab PO DAILY ferrous sulfate [FeroSul] 325 mg (65 mg iron) tablet 325 mg PO Q3D Patient Comments: PT STATES MD TOLD HER TO TAKE EVERY 3 DAYS potassium citrate 99 mg capsule 99 mg PO DAILY Patient Comments: PT STATES SHE TAKES THIS WHEN SHE REMEMBERS Discontinued olanzapine 5 mg tablet 5 mg PO QHS mirtazapine 30 mg tablet 30 mg PO QHS amoxicillin 500 mg capsule 500 mg PO TID diazepam 5 mg tablet 5 mg PO TID PRN PRN (Reason: anxiety) Patient Comments: THIS IT THE MED THAT THE PT WANTS OFF OF. Referrals / Follow Up: Terry Solano MD [Primary Care Provider] - Disposition Disposition (needs filled in before D/C Order can be placed): Home, Self Care
--- NOTE | 2023-08-18 13:29 | PCM.DC.SUM ---
Providers Date of Admission: 08/15/23 Date of Discharge: 08/18/23 Primary Care Physician: Dr. Terry Solano MD Reason For Visit: bzp withdrawal Diagnosis Discharge Diagnosis (1) Benzodiazepine dependence, continuous: Status: Acute Code(s): F13.20 - Sedative, hypnotic or anxiolytic dependence, uncomplicated Medications at Discharge Home Medications calcium carbonate 600 mg-vitamin D3 5 mcg (200 unit) tablet (Calcium 600 + D(3)) 1 tab PO DAILY 08/15/23 carvedilol 12.5 mg tablet 12.5 mg PO BID 08/15/23 cyanocobalamin (vitamin B-12) 1,000 mcg/mL injection solution 1,000 mcg IM Q21D 08/15/23 ferrous sulfate 325 mg (65 mg iron) tablet (FeroSul) 325 mg PO Q3D 08/15/23 magnesium 250 mg tablet 250 mg PO DAILY 08/15/23 multivitamin (Daily Multi-Vitamin tablet) 1 tab PO DAILY 08/15/23 paroxetine HCl 20 mg tablet (Paxil) 20 mg PO QHS 08/15/23 potassium citrate 99 mg capsule 99 mg PO DAILY 08/15/23 mirtazapine 15 mg tablet 15 mg PO QHS 30 days #30 tabs 08/18/23 Hospital Course Operations None Procedures - (X-ray ribs) Summary of Care Provided Minutes Spent on Discharge: 35 Hospital Course: Patient is a 78-year-old female who presented [facility] ED on 08/15/2023 requesting assistance with tapering off of her home benzodiazepine. Hospital course as noted below. Discharged home in stable condition on 08/17. 1. Chronic benzodiazepine use with concern for withdrawal ? On home diazepam 5 mg daily as needed for years and was told by PCP that she needed to probably taper off, and she had concerned about significant withdrawal symptoms if doing this at home. Treated with Ativan taper with other as needed medications per benzodiazepine withdrawal order set. Tolerated taper well, no significant withdrawal symptoms. Stable for discharge home on 08/17. 2. History of severe anxiety and depression ? Home meds on admit of paroxetine 20 mg at night, olanzapine 5 mg at night, mirtazapine 30 mg at night and diazepam as above. Stopped home olanzapine per patient request and decreased mirtazapine to 15 mg at night. Continued paroxetine 20 mg at night. Discontinue diazepam as noted above. Will continue paroxetine and mirtazapine at reduced dose on discharge. Recommend close outpatient follow-up with PCP for further medication titration as needed. 3. CKD stage III ? Creatinine 1.51 on admit, baseline creatinine 1.3-1.5. Stable at baseline. 4. Mild chronic iron deficiency anemia ? Hemoglobin 12.0 on admit, decreased to 11.0 on hospital day 2 presumed secondary to IV fluid resuscitation on admit. Baseline hemoglobin 11-12. Stable. Continue home iron supplement. 5. Recent history of unintentional weight loss ? Patient apparently had concern for unintentional weight loss over the past few months. Had CT chest abdomen pelvis on 08/05 that showed no concerning findings. Continue outpatient PCP follow-up as needed. Total clinical time spent by myself addressing the patient's medical issues, reviewing all the data, and collaborating with patient's care team: 35 minutes. Physical Exam Const alert, oriented x3, no apparent distress and average body habitus Constitutional Narrative: Elderly female, resting comfortably in bed, conversing normally, in no acute distress. Stable. General Appearance: cooperative and comfortable HEENT normocephalic, head/scalp atraumatic, hearing grossly normal bilaterally, nasal mucous membranes and turbinates normal and moist oral mucous membranes Eyes PERRL, EOMs intact bilaterally and conjunctivae normal Neck full ROM Chest inspection of chest normal Resp normal respiratory effort, normal air movement, no use of accessory muscles and clear to auscultation bilaterally Cardio regular rate, regular rhythm, no murmurs and peripheral pulses 2+ throughout GI normal to inspection, nondistended, normoactive bowel sounds, soft to palpation, non-tender and non-distended Back/Spine normal ROM Extremity normal to inspection, full ROM and no pedal edema Skin no rashes or lesions noted Neuro moves all extremities and no focal motor deficits Speech: speech normal Psych mental status grossly normal Medical Records Data Medical Nutrition Assessment Dietitian: Malnutrition Criteria Met Start: 08/16/23 11:38 Freq: Status: Active Protocol: Document 08/16/23 11:53 LO (Rec: 08/16/23 11:53 [id number]) Nutrition Malnutrition Evidence of Malnutrition Exists Yes Malnutrition (severe): Chronic Evidenced By Suboptimal Energy Intake ( Severe),Weight Loss (Severe) Clinical Problem Chronic Disease or Condition Related Malnutrition Etiology severe related to anxiety and decreased appetite Signs/Symptoms as evidenced by 21.2lbs (12.6% ) weight loss in 2 months and PO intakes <75% of estimated nutrition need for ~2 months Status Active Problem Recommendation Dietitian Recommendations/Changes Continue Regular diet with snacks TID to optimize oral intakes RD will order 120mL ensure plus high protein 4x with medpass to provide supplemental energy and promote weight maintenance Weight / BMI Weight Weight: 66.134 kg Body Mass Index (BMI) 25.0 ABG / Lab / Microbiology Data 08/16/23 08:31 08/16/23 08:31 D/C Instructions Discharge Diet: No restrictions Meaningful Use Info Meaningful Use Meaningful Use Diagnoses (Choose all that apply): None applicable Ischemic Stroke Statin Dosing Therapy Reference: STATIN DOSE THERAPY REFERENCE: * Patients > 75 years receive moderate or high dose statin therapy. * Patients 75 years or YOUNGER should receive HIGH intensity statin dose unless contraindicated. You will be required to document reason for non-treatment if statin daily dose does not meet guidelines. HIGH DOSE STATIN THERAPY DAILY Atorvastatin > than or = to 40 mg Rosuvastatin > than or = to 20 mg Amlodipine + Atorvastatin > than or = to 2.5/40 mg Ezetimibe + Simvastatin 10/80 mg Simvastatin 80mg Discharge Plan Admission Admit Date/Time: 08/15/23 13:55 Primary Reason for Your Visit: Chronic benzodiazepine use with concern for withdrawal Attending Provider: Roger Mcnamara Primary Care Provider: Terry Solano Consulting Providers: Otis Kwong Instructions Additional Instructions / Restrictions: Please take mirtazapine and decreased dose of 50 mg at night as noted below. Stop taking the home olanzapine. Continue your home Paxil as normal. Follow-up with your primary care doctor for further medication titration as needed. Discharge Orders/Prescriptions Prescriptions: New mirtazapine 15 mg Tablet 15 mg PO QHS 30 Days Qty: 30 2RF Continued paroxetine HCl [Paxil] 20 mg tablet 20 mg PO QHS carvedilol 12.5 mg tablet 12.5 mg PO BID multivitamin [Daily Multi-Vitamin] Tablet 1 tab PO DAILY magnesium 250 mg tablet 250 mg PO DAILY cyanocobalamin (vitamin B-12) 1,000 mcg/mL solution 1,000 mcg IM Q21D Patient Comments: PT UNAWARE OF WHEN THIS IS DUE calcium carbonate-vitamin D3 [Calcium 600 + D(3)] 600 mg-5 mcg (200 unit) tablet 1 tab PO DAILY ferrous sulfate [FeroSul] 325 mg (65 mg iron) tablet 325 mg PO Q3D Patient Comments: PT STATES MD TOLD HER TO TAKE EVERY 3 DAYS potassium citrate 99 mg capsule 99 mg PO DAILY Patient Comments: PT STATES SHE TAKES THIS WHEN SHE REMEMBERS Discontinued olanzapine 5 mg tablet 5 mg PO QHS mirtazapine 30 mg tablet 30 mg PO QHS amoxicillin 500 mg capsule 500 mg PO TID diazepam 5 mg tablet 5 mg PO TID PRN PRN (Reason: anxiety) Patient Comments: THIS IT THE MED THAT THE PT WANTS OFF OF. Referrals / Follow Up: Terry Solano MD [Primary Care Provider] - Disposition Disposition (needs filled in before D/C Order can be placed): Home, Self Care Charges/Coding Visit Charges Inpatient E&M: 12673 Disch Hosp >30min
[2023-08-18 15:40] VITALS: BP 153/80; PULSE 88; RESP 18; TEMP 37; O2SAT 98
--- NOTE | 2023-08-20 14:04 | NURSING ---
Nurse Bernadine Hartley reported to me (Cherise, director) that patient went home Sunday. The patient has called in to the floor every day about her anxiety. Yesterday she was asking about just coming back to the floor. Charge nurse informed her of options to call crisis, her PCP or go to the ED. Today patient called again about her anxiety. Bernadine instructed her that she needed to call her PCP or if too severe go to the ED. Noted that CM had given patient resources and follow up with PCP. They diid not make any appointments per patient request but information was given.
== END 2023-08-18 15:39 | disposition home or self-care (01) | DRG 896 ==
LOC: ED 12:52 → MS3 14:24
PROVIDERS: Admitting Provider Internal Medicine; Emergency Provider Student in an Organized Health Care Education/Training Program; PCP Internal Medicine; Visit Provider Hospitalist
DX: F13.239 Sedative, hypnotic or anxiolytic dependence with withdrawal, unspecified (principal); E43 Unspecified severe protein-calorie malnutrition; N18.30 Chronic kidney disease, stage 3 unspecified; I12.9 Hypertensive chronic kidney disease with stage 1 through stage 4 chronic kidney disease, or unspecified chronic kidney disease; F32.A Depression, unspecified; D50.9 Iron deficiency anemia, unspecified; F41.9 Anxiety disorder, unspecified; Z87.891 Personal history of nicotine dependence; Z79.899 Other long term (current) drug therapy; Z68.25 Body mass index [BMI] 25.0-25.9, adult
CPT/HCPCS: 71111; 80048; 80076; 80307; 82077; 82962; 84439; 84443; 85025; 85027; 85610; 97802; 99283; J7120; A4216